=== PATIENT | male | born 1950 | race Caucasian/White ===

== ENCOUNTER 2024-01-15 06:49 | Emergency (ER) | payer BC, MEDICAID ==
[~2024-01-15] VITALS: Ht 172.7 cm; Wt 91.7 kg
[~2024-01-15 06:49] MED LIST: BP MEDICATION; FLO0.4C PO
[2024-01-15] MEDS: heparin 10,000 units/1 ML INJ IV PRN (07:26)
[2024-01-15] MEDS: heparin 25,000 UNIT/250ml bag 250 ML IV PRN (07:40)
[2024-01-15] MEDS: aspirin 81mg tab.chew PO ONE (07:40)
[2024-01-15 07:49] LABS: APTT 64 SECONDS (22-32); D-DIMER 0.63 MG/L FEU (0-0.50); INR 1.1 INR; PROTHROMBIN TIME 11.9 SECONDS (9.0-12.0)
[2024-01-15 08:04] LABS: ALBUMIN 2.9 G/DL (3.4-5.0); ANION GAP 10 (8-16); BLOOD UREA NITROGEN 49 MG/DL (7-18); CALCIUM 8.4 MG/DL (8.5-10.1); CHLORIDE 96 MMOL/L (99-107); CREATININE 8.17 MG/DL (0.60-1.10); GLUCOSE 134 MG/DL (70-104); MAGNESIUM 2.1 MG/DL (1.5-2.4); POTASSIUM 4.6 MMOL/L (3.5-5.1); SODIUM 136 MMOL/L (135-145); TOTAL CARBON DIOXIDE 29.9 MMOL/L (24-32); eCRCL 8 ML/MIN; eGFR 7 ML/MIN
[2024-01-15 08:07] LABS: BASOPHILS % (AUTO) 0.3 % (0-1); EOSINOPHILS # (AUTO) 0.5 X10'3 (0-0.9); EOSINOPHILS % (AUTO) 3.4 % (0-6); HEMATOCRIT 32.4 % (42.0-52.0); HEMOGLOBIN 10.7 g/dl (14.0-17.9); LYMPHOCYTES # (AUTO) 3.8 X10'3 (1.1-4.8); LYMPHOCYTES % (AUTO) 25.8 % (21-51); MEAN CORPUSCULAR HEMOGLOBIN 31.9 PG (27.0-31.0); MEAN CORPUSCULAR HGB CONC 32.9 g/dL (33.0-36.5); MEAN CORPUSCULAR VOLUME 96.8 FL (78-98); MEAN PLATELET VOLUME 7.6 FL (7.4-10.4); MONOCYTES % (AUTO) 6.8 % (2-12); NEUTROPHILS # (AUTO) 9.3 X10'3 (1.8-7.7); NEUTROPHILS % (AUTO) 63.7 % (42-75); PLATELET COUNT 257 X10'3 (140-440); RED BLOOD COUNT 3.35 X10'6 (4.70-6.10); RED CELL DISTRIBUTION WIDTH 14.5 % (11.5-14.5); WHITE BLOOD COUNT 14.5 X10'3 (4.5-11.0)
[2024-01-15 08:36] LABS: PRO BRAIN NATRIURETIC PEPTIDE 18208 PG/ML (0-125)
[2024-01-15] MEDS ORDERED: iohexol 350MG/ML 100ml bottle IV ONE (10:30)
[2024-01-15] MEDS: cloNIDine 0.1 mg tablet PO ONE (18:02)
[2024-01-15] MEDS: enalaprilat dihydrate 2.5mg/2ml vial IV ONE (18:03)
[2024-01-15] MEDS: hydrALAZINE 20mg/ml inj. IV ONE (18:03)
[2024-01-15] MEDS: nicotine 21mg patch - 24 hr TD ONE (18:08)
[2024-01-16] MEDS: MESSAGE TO NURSING IV ONE ×2 (00:07→05:24)
[2024-01-16 06:54] VITALS: BP 184/78; PULSE 74; RESP 18; TEMP 98.7; O2SAT 98
== END 2024-01-16 06:57 | disposition short-term general hospital (02) ==
LOC: ER 06:49
DX: I21.4 Non-ST elevation (NSTEMI) myocardial infarction (principal); R07.89 Other chest pain; R55 Syncope and collapse; R42 Dizziness and giddiness; Z99.2 Dependence on renal dialysis; Z79.899 Other long term (current) drug therapy
CPT/HCPCS: 36415; 70450; 71045; 71275; 80048; 83735; 83880; 84484; 85025; 85379; 85610; 85730; 93005; 93931; 96365; 96366; 96375; 99291; J0360; J1644; J3490; Q9967

== ENCOUNTER 2024-07-16 21:24 | Inpatient (IN) | payer BC, MEDICAID ==
[~2024-07-16] VITALS: Ht 172.7 cm; Wt 83.6 kg
[~2024-07-16 21:24] MED LIST changes: +APIX5TAB3 PO; +ATOR-2 PO; -BP MEDICATION; +FURO80TA3 PO; +GABA-530 PO; +LISI40TA13 PO; +NIFE90TA70 PO; +PANT40TA54 PO; +SEVE800T28 PO
[2024-07-16 22:37] LABS: HEMATOCRIT 31.1 % (42.0-52.0); HEMOGLOBIN 10.2 g/dl (14.0-17.9); MEAN CORPUSCULAR HEMOGLOBIN 29.7 PG (27.0-31.0); MEAN CORPUSCULAR HGB CONC 32.8 g/dL (33.0-36.5); MEAN CORPUSCULAR VOLUME 90.6 FL (78-98); RED BLOOD COUNT 3.44 X10'6 (4.70-6.10); RED CELL DISTRIBUTION WIDTH 16.8 % (11.5-14.5); WHITE BLOOD COUNT 11.8 X10'3 (4.5-11.0)
[2024-07-16 22:38] LABS: BASOPHILS # (AUTO) 0.1 X10'3 (0-0.2); BASOPHILS % (AUTO) 0.7 % (0-1); EOSINOPHILS # (AUTO) 0.1 X10'3 (0-0.9); EOSINOPHILS % (AUTO) 0.6 % (0-6); LYMPHOCYTES # (AUTO) 0.8 X10'3 (1.1-4.8); LYMPHOCYTES % (AUTO) 6.4 % (21-51); MEAN PLATELET VOLUME 6.9 FL (7.4-10.4); MONOCYTES # (AUTO) 0.3 X10'3 (0-0.9); MONOCYTES % (AUTO) 2.4 % (2-12); NEUTROPHILS # (AUTO) 10.6 X10'3 (1.8-7.7); NEUTROPHILS % (AUTO) 89.9 % (42-75); PLATELET COUNT 264 X10'3 (140-440)
[2024-07-16 22:47] LABS: ALBUMIN 3.2 G/DL (3.4-5.0); ANION GAP 5 (8-16); BLOOD UREA NITROGEN 11 MG/DL (7-18); CALCIUM 8.7 MG/DL (8.5-10.1); CHLORIDE 98 MMOL/L (99-107); CREATININE 5.62 MG/DL (0.60-1.10); GLUCOSE 153 MG/DL (70-104); POTASSIUM 4.8 MMOL/L (3.5-5.1); SODIUM 135 MMOL/L (135-145); eCRCL 11 ML/MIN; eGFR 10 ML/MIN
[2024-07-16] MEDS: albuterol 2.5 MG/3 ML nebule CONTNEB PRN (23:40)
[2024-07-16 23:42] VITALS: PULSE 125; RESP 36; O2SAT 96
[2024-07-16] MEDS: nitroGLYCERIN 1gm ointment UD TP ONE (23:45)
[2024-07-16] MEDS: hydrALAZINE 20mg/ml inj. IV ONE (23:45)
[2024-07-16 23:51] LABS: MAGNESIUM 2.1 MG/DL (1.5-2.4)
[2024-07-16] MEDS: diltiazem 5mg/ml 5ml inj. IV ONE (23:56)
[2024-07-17] VITALS (39 sets, daily range): BP systolic 145–176; BP diastolic 64–108; PULSE 73–107; RESP 16–33; TEMP 97.2–97.9; O2SAT 95–100
[2024-07-17 00:22] LABS: PRO BRAIN NATRIURETIC PEPTIDE > 30000 PG/ML (0-125)
[2024-07-17 00:54] LABS: ABG BASE EXCESS 1.6 mmol/L (-2.0-3.0); ABG HCO3 22.1 mmol/L (21.0-28.0); ABG OXYGEN SATURATION 97.3 % (94.0-98.0); ABG PCO2 (T) 23.2 mmHg (35.0-48.0); ABG PH (T) 7.597 (7.350-7.450); ABG PO2 (T) 88.7 mmHg (83.0-108.0); ALLEN'S TEST POSITIVE; FCOHb 0.5 % (0.5-1.5); FHHb 2.7 % (0.0-5.0); FMetHb 0.3 % (0.0-1.5); FO2Hb 96.5 % (94.0-98.0); MODE MASK - BIPAP; PATIENT TEMPERATURE 36.9; RESPIRATORY RATE 12 b/min; TOTAL HEMOGLOBIN 11.2 G/dl (13.5-17.5)
[2024-07-17] MEDS ORDERED: magnesium hydroxide 30ml (MOM) UD suspension PO PRN (01:35)
[2024-07-17] MEDS ORDERED: acetaminophen 325mg tablet PO PRN (01:35)
[2024-07-17] MEDS ORDERED: potassium Cl 20 mEq SR tablet PO PRN ×2 (01:35)
[2024-07-17] MEDS ORDERED: ondansetron/PF 4mg/2ml inj IV PRN (01:35)
[2024-07-17] MEDS ORDERED: mag hydrox/Alum hydrox/simeth 30ml oral suspension PO PRN (01:35)
[2024-07-17] MEDS ORDERED: magnesium Cl slow-release 64mg tablet PO PRN (01:35)
[2024-07-17] MEDS ORDERED: morphine 2 MG/ML inj. syringe IV PRN (01:35)
[2024-07-17] MEDS ORDERED: magnesium sulf-water 2g/50mL 50 ML IV PRN (01:35)
[2024-07-17] MEDS ORDERED: potassium Cl 40MEQ/1/2NS 520ml 520 ML IV PRN (01:35)
[2024-07-17] MEDS ORDERED: magnesium sulf-water 4G/100mL 100 ML IV PRN (01:35)
[2024-07-17 03:01] LABS: APTT 30 SECONDS (22-32); D-DIMER 1.17 MG/L FEU (0-0.50); INR 1.1 INR; PROTHROMBIN TIME 11.1 SECONDS (9.0-12.0)
[2024-07-17 03:04] LABS: MAGNESIUM 2.1 MG/DL (1.5-2.4); POTASSIUM 3.8 MMOL/L (3.5-5.1)
[2024-07-17] MEDS: HEPARIN DRIP DVT/PE -**PHARMACIST TO DOSE IV ONE (04:30)
[2024-07-17] MEDS ORDERED: heparin 10,000 units/1 ML INJ IV PRN (04:50)
[2024-07-17] MEDS: heparin 10,000 units/1 ML INJ IV ONE (05:38)
[2024-07-17] MEDS: MESSAGE TO NURSING IV ONE ×3 (05:41→14:03)
[2024-07-17] MEDS: heparin 25,000 UNIT/250ml bag 250 ML IV PRN (05:41)
[2024-07-17 05:51] LABS: BILIRUBIN,URINE NEGATIVE (Neg); CLARITY,URINE CLEAR (Clear); COLOR,URINE YELLOW (Yellow); GLUCOSE, URINE 100 mg/dl (Neg); KETONES,URINE NEGATIVE (Neg); LEUKOCYTE ESTERASE ,URINE SMALL (Neg); NITRITES, URINE NEGATIVE (Neg); OCCULT BLOOD,URINE TRACE-INTACT (Neg); PH,URINE 8.5 (4.8-8.0); PROTEIN,URINE 100 mg/dl (Neg); UROBILINOGEN,URINE 0.2 E.U/dL (0.2-1.0)
[2024-07-17 05:52] LABS: UA COLLECTION TYPE URINAL
[2024-07-17 05:59] LABS: BACTERIA,URINE NONE SEEN /HPF (Neg); MUCUS STRANDS NONE SEEN /LPF (Neg); RBC,URINE 0-2 /HPF (0-2); SQUAMOUS EPITHELIAL CELL,UR FEW /LPF (FEW)
[2024-07-17] MEDS: ipratropium/albuterol 3ml nebule NEB SCH (07:31)
[2024-07-17] MEDS: K and/or MAG REPLACEMENT MC SCH (08:00)
[2024-07-17 09:02] LABS: BASOPHILS % (AUTO) 0.2 % (0-1); EOSINOPHILS % (AUTO) 0 % (0-6); HEMATOCRIT 34.6 % (42.0-52.0); HEMOGLOBIN 11.3 g/dl (14.0-17.9); LYMPHOCYTES # (AUTO) 0.8 X10'3 (1.1-4.8); LYMPHOCYTES % (AUTO) 9.9 % (21-51); MEAN CORPUSCULAR HEMOGLOBIN 29.7 PG (27.0-31.0); MEAN CORPUSCULAR HGB CONC 32.7 g/dL (33.0-36.5); MEAN CORPUSCULAR VOLUME 90.7 FL (78-98); MEAN PLATELET VOLUME 7.5 FL (7.4-10.4); MONOCYTES # (AUTO) 0.5 X10'3 (0-0.9); MONOCYTES % (AUTO) 6.2 % (2-12); NEUTROPHILS # (AUTO) 6.9 X10'3 (1.8-7.7); NEUTROPHILS % (AUTO) 83.7 % (42-75); PLATELET COUNT 257 X10'3 (140-440); RED BLOOD COUNT 3.81 X10'6 (4.70-6.10); RED CELL DISTRIBUTION WIDTH 17.2 % (11.5-14.5); WHITE BLOOD COUNT 8.2 X10'3 (4.5-11.0)
[2024-07-17] MEDS: levoFLOXACIN-Levaquin 500mg/D5 100 ML IV ONE (10:56)
[2024-07-17] MEDS: methylPREDNISolone sod succ 125mg/2ml vial IV SCH (11:02)
[2024-07-17] MEDS: docusate sod 100mg capsule PO SCH (11:02)
[2024-07-17] MEDS: metoprolol succinate 25mg (24-HOUR) SR. Tablet PO SCH (13:22)
[2024-07-17] MEDS: lisinopril 20mg tablet PO SCH (13:23)
[2024-07-17] MEDS ORDERED: aminophylline 250mg/10ml inj. IV PRN (14:20)
[2024-07-17] MEDS ORDERED: nitroGLYCERIN 0.4mg SUBLingual tab SL PRN (14:20)
[2024-07-17] MEDS ORDERED: regadenoson 0.4mg/5ml syringe IV PRN (14:20)
[2024-07-17] MEDS ORDERED: metoprolol tartrate 1mg/ml inj IV PRN (14:20)
[2024-07-17] MEDS ORDERED: labetalol 20mg/4ml (5mg/ml) syringe IV PRN (15:00)
[2024-07-17] MEDS: labetalol 20mg/4ml (5mg/ml) syringe IV PRN (15:53)
[2024-07-17] MEDS ORDERED: nitroGLYCERIN-Tridil 50MG/D5W 250 ML IV PRN (16:30)
[2024-07-17] MEDS ORDERED: hydrALAZINE 20mg/ml inj. IV PRN (17:35)
[2024-07-17] MEDS ORDERED: albumin (human) 25% 100ml IV 100 ML IV PRN (17:45)
[2024-07-17] MEDS: furosemide 40mg/4ml inj IV ONE (19:47)
[2024-07-17] MEDS: nitroGLYCERIN-Tridil 50MG/D5W 250 ML IV SCH ×2 (20:23)
[2024-07-18] VITALS (41 sets, daily range): BP systolic 134–197; BP diastolic 66–109; PULSE 56–118; RESP 13–26; TEMP 97–98.2; O2SAT 56–99
[2024-07-18] MEDS ORDERED: nitroGLYCERIN-Tridil 50MG/D5W 250 ML IV PRN ×2 (04:05→04:13)
[2024-07-18] MEDS: nitroGLYCERIN-Tridil 50MG/D5W 250 ML IV SCH (04:25)
[2024-07-18 04:54] LABS: BASOPHILS % (AUTO) 0.1 % (0-1); EOSINOPHILS % (AUTO) 0 % (0-6); HEMATOCRIT 27.5 % (42.0-52.0); HEMOGLOBIN 9.1 g/dl (14.0-17.9); LYMPHOCYTES # (AUTO) 0.7 X10'3 (1.1-4.8); LYMPHOCYTES % (AUTO) 6.2 % (21-51); MEAN CORPUSCULAR HEMOGLOBIN 29.5 PG (27.0-31.0); MEAN CORPUSCULAR HGB CONC 32.9 g/dL (33.0-36.5); MEAN CORPUSCULAR VOLUME 89.7 FL (78-98); MEAN PLATELET VOLUME 7.4 FL (7.4-10.4); MONOCYTES # (AUTO) 0.6 X10'3 (0-0.9); MONOCYTES % (AUTO) 5.8 % (2-12); NEUTROPHILS # (AUTO) 9.7 X10'3 (1.8-7.7); NEUTROPHILS % (AUTO) 87.9 % (42-75); PLATELET COUNT 222 X10'3 (140-440); RED BLOOD COUNT 3.07 X10'6 (4.70-6.10); RED CELL DISTRIBUTION WIDTH 17.1 % (11.5-14.5)
[2024-07-18 05:10] LABS: ALANINE AMINOTRANSFERASE 13 U/L (12-78); ALBUMIN/GLOBULIN RATIO 0.9 (1.1-1.5); ALKALINE PHOSPHATASE 45 IU/L (46-116); ANION GAP 7 (8-16); ASPARTATE AMINO TRANSFERASE 15 U/L (10-37); BILIRUBIN,TOTAL 0.7 MG/DL (0.1-1.0); BLOOD UREA NITROGEN 11 MG/DL (7-18); BUN/CREATININE RATIO 2.4 (10.0-20.0); CALCIUM 9.6 MG/DL (8.5-10.1); CHLORIDE 100 MMOL/L (99-107); CREATININE 4.53 MG/DL (0.60-1.10); GLUCOSE 133 MG/DL (70-104); POTASSIUM 4.3 MMOL/L (3.5-5.1); SODIUM 136 MMOL/L (135-145); TOTAL PROTEIN 6.3 G/DL (6.4-8.2); eCRCL 14 ML/MIN; eGFR 13 ML/MIN
[2024-07-18] MEDS ORDERED: albumin (human) 25% 100ml IV 100 ML IV PRN (06:40)
[2024-07-18] MEDS ORDERED: fentaNYL/PF 50MCG/1 ML 2ML syringe ONE (07:36)
[2024-07-18] MEDS ORDERED: heparin 1,000unit/ml 10ml vial 10 ML ONE (07:36)
[2024-07-18] MEDS ORDERED: iohexol 350 MG/ML 50ML vial IV ONE (07:36)
[2024-07-18] MEDS ORDERED: midazolam 1 mg/ML 2ml injection ONE (07:36)
[2024-07-18] MEDS ORDERED: verapamil 2.5 mg/ml inj IV ONE (07:36)
[2024-07-18] MEDS ORDERED: iohexol 350MG/ML 100ml bottle IV ONE ×3 (07:37→09:27)
[2024-07-18] MEDS ORDERED: nitroGLYCERIN 500mcg/5mL D5W 5 ML IV ONE ×2 (07:37→09:28)
[2024-07-18] MEDS ORDERED: LIDOcaine 1% 30ml preserv. free vial ONE (07:48)
[2024-07-18] MEDS ORDERED: heparin 25,000 UNIT/250ml bag 250 ML IV ONE (09:15)
[2024-07-18] MEDS ORDERED: hydrALAZINE 20mg/ml inj. ONE (09:54)
[2024-07-18] MEDS ORDERED: clopidogrel 300mg tablet ONE (09:58)
[2024-07-18] MEDS ORDERED: aspirin 81mg tab.chew ONE (09:58)
[2024-07-18] MEDS: furosemide 20 MG/2 ML vial IV SCH (12:00)
[2024-07-18 14:12] LABS: ISTAT HGB ART 9.9 g/dl (14.0-17.9); ISTAT Hct ART 29 %PCV (42-52); ISTAT O2 SATURATION ARTERIAL 92 % (95-98); ISTAT SOURCE ART
[2024-07-18] MEDS: sacubitril/valsartan 24mg-26mg tablet PO SCH (20:00)
[2024-07-18] MEDS: aspirin 81mg, enteric-coated 1 TAB TABLET.DR PO ONE (21:40)
[2024-07-18] MEDS: metoprolol succinate 25mg (24-HOUR) SR. Tablet PO ONE (21:40)
[2024-07-18] MEDS: apixaban 5mg tablet PO SCH (21:41)
[2024-07-19] VITALS (13 sets, daily range): BP systolic 118–168; BP diastolic 59–91; PULSE 59–96; RESP 14–31; TEMP 97.3–98.4; O2SAT 56–97
[2024-07-19] MEDS: hydrALAZINE 20mg/ml inj. IV PRN (03:17)
[2024-07-19 06:33] LABS: BASOPHILS % (AUTO) 0.1 % (0-1); EOSINOPHILS % (AUTO) 0 % (0-6); HEMATOCRIT 29.7 % (42.0-52.0); HEMOGLOBIN 9.4 g/dl (14.0-17.9); LYMPHOCYTES # (AUTO) 0.6 X10'3 (1.1-4.8); LYMPHOCYTES % (AUTO) 5.1 % (21-51); MEAN CORPUSCULAR HEMOGLOBIN 28.8 PG (27.0-31.0); MEAN CORPUSCULAR HGB CONC 31.8 g/dL (33.0-36.5); MEAN CORPUSCULAR VOLUME 90.5 FL (78-98); MEAN PLATELET VOLUME 7.8 FL (7.4-10.4); MONOCYTES # (AUTO) 0.6 X10'3 (0-0.9); MONOCYTES % (AUTO) 4.3 % (2-12); NEUTROPHILS # (AUTO) 11.6 X10'3 (1.8-7.7); NEUTROPHILS % (AUTO) 90.5 % (42-75); PLATELET COUNT 229 X10'3 (140-440); RED BLOOD COUNT 3.28 X10'6 (4.70-6.10); RED CELL DISTRIBUTION WIDTH 17.2 % (11.5-14.5); WHITE BLOOD COUNT 12.9 X10'3 (4.5-11.0)
[2024-07-19 06:54] LABS: ALANINE AMINOTRANSFERASE 19 U/L (12-78); ALBUMIN 3.3 G/DL (3.4-5.0); ALKALINE PHOSPHATASE 47 IU/L (46-116); ANION GAP 9 (8-16); ASPARTATE AMINO TRANSFERASE 19 U/L (10-37); BILIRUBIN,TOTAL 0.6 MG/DL (0.1-1.0); BLOOD UREA NITROGEN 18 MG/DL (7-18); BUN/CREATININE RATIO 3.7 (10.0-20.0); CALCIUM 9.7 MG/DL (8.5-10.1); CHLORIDE 98 MMOL/L (99-107); CREATININE 4.83 MG/DL (0.60-1.10); GLUCOSE 120 MG/DL (70-104); MAGNESIUM 2.2 MG/DL (1.5-2.4); POTASSIUM 4.8 MMOL/L (3.5-5.1); SODIUM 135 MMOL/L (135-145); TOTAL CARBON DIOXIDE 28.3 MMOL/L (24-32); TOTAL PROTEIN 6.5 G/DL (6.4-8.2); eCRCL 13 ML/MIN; eGFR 12 ML/MIN
[2024-07-19 07:16] LABS: HBSAG SCREEN Negative (Negative)
[2024-07-19] MEDS: EMPAGLIFLOZIN 10 MG TABLET PO SCH (07:34)
[2024-07-19] MEDS: metoprolol succinate 25mg (24-HOUR) SR. Tablet PO SCH (07:34)
[2024-07-19] MEDS: clopidogrel 75mg tablet PO SCH (07:45)
[2024-07-19] MEDS: aspirin 81mg, enteric-coated 1 TAB TABLET.DR PO SCH (07:50)
[2024-07-19] MEDS: levoFLOXACIN-Levaquin 250mg/D5 100 ML IV SCH (07:53)
[2024-07-19] MEDS ORDERED: aspirin 81mg, enteric-coated 1 TAB TABLET.DR PO SCH (08:00)
[2024-07-19] MEDS ORDERED: clopidogrel 75mg tablet PO SCH (08:00)
[2024-07-19] MEDS ORDERED: albumin (human) 25% 100ml IV 100 ML IV PRN (10:05)
[2024-07-19] MEDS: amLODIPine 5mg tablet PO SCH (11:29)
[2024-07-19] MEDS: pantoprazole 40mg Tablet.DR PO ONE (11:30)
[2024-07-19] MEDS: furosemide 20 MG/2 ML vial IV SCH (20:00)
[2024-07-19] MEDS: EPOETIN ALFA-EPBX 20,000 UNIT/ML 1 ML MDV IV ONE (23:23)
[2024-07-20 02:00] VITALS: BP 136/69; PULSE 72; RESP 18; TEMP 97.8; O2SAT 97
[2024-07-20 05:57] LABS: BASOPHILS % (AUTO) 0.1 % (0-1); EOSINOPHILS % (AUTO) 0.1 % (0-6); HEMATOCRIT 29.2 % (42.0-52.0); HEMOGLOBIN 9.6 g/dl (14.0-17.9); LYMPHOCYTES # (AUTO) 1.9 X10'3 (1.1-4.8); LYMPHOCYTES % (AUTO) 15.3 % (21-51); MEAN CORPUSCULAR HEMOGLOBIN 29.5 PG (27.0-31.0); MEAN CORPUSCULAR HGB CONC 32.8 g/dL (33.0-36.5); MEAN PLATELET VOLUME 8.3 FL (7.4-10.4); MONOCYTES # (AUTO) 1.4 X10'3 (0-0.9); MONOCYTES % (AUTO) 10.8 % (2-12); NEUTROPHILS # (AUTO) 9.3 X10'3 (1.8-7.7); NEUTROPHILS % (AUTO) 73.7 % (42-75); PLATELET COUNT 244 X10'3 (140-440); RED BLOOD COUNT 3.24 X10'6 (4.70-6.10); RED CELL DISTRIBUTION WIDTH 17.4 % (11.5-14.5); WHITE BLOOD COUNT 12.6 X10'3 (4.5-11.0)
[2024-07-20 06:00] VITALS: BP 158/79; PULSE 66; RESP 19; TEMP 97.5; O2SAT 95
[2024-07-20 06:26] LABS: ALANINE AMINOTRANSFERASE 22 U/L (12-78); ALKALINE PHOSPHATASE 47 IU/L (46-116); ANION GAP 10 (8-16); ASPARTATE AMINO TRANSFERASE 24 U/L (10-37); BILIRUBIN,TOTAL 0.6 MG/DL (0.1-1.0); BLOOD UREA NITROGEN 23 MG/DL (7-18); BUN/CREATININE RATIO 4.3 (10.0-20.0); CALCIUM 7.9 MG/DL (8.5-10.1); CHLORIDE 100 MMOL/L (99-107); CREATININE 5.34 MG/DL (0.60-1.10); GLUCOSE 100 MG/DL (70-104); MAGNESIUM 2.1 MG/DL (1.5-2.4); POTASSIUM 3.5 MMOL/L (3.5-5.1); SODIUM 138 MMOL/L (135-145); TOTAL CARBON DIOXIDE 27.6 MMOL/L (24-32); eCRCL 12 ML/MIN; eGFR 11 ML/MIN
[2024-07-20 07:45] VITALS: RESP 18; O2SAT 95
[2024-07-20] MEDS: pantoprazole 40mg Tablet.DR PO SCH (07:49)
[2024-07-20] MEDS: metoprolol succinate 25mg (24-HOUR) SR. Tablet PO SCH (07:50)
[2024-07-20 08:08] VITALS: PULSE 61; RESP 18; O2SAT 97
[2024-07-20] MEDS ORDERED: METO-395 PO (10:22)
[2024-07-20] MEDS ORDERED: CLOP75TA34 PO (10:22)
[2024-07-20] MEDS ORDERED: NOR5T PO (10:22)
[2024-07-20] MEDS ORDERED: EMPA10TA PO (10:22)
[2024-07-20] MEDS ORDERED: ASPI-1071 PO (10:22)
[2024-07-20] MEDS ORDERED: SACU1TAB PO (10:22)
[2024-07-20 11:00] VITALS: BP 118/76; PULSE 60; RESP 19; TEMP 97.4; O2SAT 96
[2024-07-22 13:25] LABS: ISTAT HGB MIX 9.5 g/dl (14.0-17.9); ISTAT Hct MIX 28 %PCV (42-52); ISTAT O2 SATURATION MIX VENOUS 68 % (60-80); ISTAT SOURCE VEN
[2024-07-22] MEDS ORDERED: METO100T7 PO (18:26)
== END 2024-07-20 12:05 | disposition home or self-care (01) | DRG 321 ==
LOC: ER 21:24 → ED HOLD 07-17 01:41 → EDBEDREQ 07-17 01:46 → PCU 3S 07-17 06:05
PROVIDERS: ADMIT Surgery Surgical Critical Care; ATTEND Internal Medicine
PROC: 02HV33Z Insertion of Infusion Device into Superior Vena Cava, Percutaneous Approach (ICD-10-PCS; 2024-07-17)
PROC: B548ZZA Ultrasonography of Superior Vena Cava, Guidance (ICD-10-PCS; 2024-07-17)
PROC: 5A09357 Assistance with Respiratory Ventilation, Less than 24 Consecutive Hours, Continuous Positive Airway Pressure (ICD-10-PCS; 2024-07-17)
PROC: 5A1D70Z Performance of Urinary Filtration, Intermittent, Less than 6 Hours Per Day (ICD-10-PCS; 2024-07-17)
PROC: 02703ZZ Dilation of Coronary Artery, One Artery, Percutaneous Approach (ICD-10-PCS; principal; 2024-07-18)
PROC: 027034Z Dilation of Coronary Artery, One Artery with Drug-eluting Intraluminal Device, Percutaneous Approach (ICD-10-PCS; 2024-07-18)
PROC: 4A023N8 Measurement of Cardiac Sampling and Pressure, Bilateral, Percutaneous Approach (ICD-10-PCS; 2024-07-18)
PROC: B2111ZZ Fluoroscopy of Multiple Coronary Arteries using Low Osmolar Contrast (ICD-10-PCS; 2024-07-18)
PROC: B2151ZZ Fluoroscopy of Left Heart using Low Osmolar Contrast (ICD-10-PCS; 2024-07-18)
PROC: 5A09357 Assistance with Respiratory Ventilation, Less than 24 Consecutive Hours, Continuous Positive Airway Pressure (ICD-10-PCS; 2024-07-18)
PROC: 5A1D70Z Performance of Urinary Filtration, Intermittent, Less than 6 Hours Per Day (ICD-10-PCS; 2024-07-18)
PROC: 5A1D70Z Performance of Urinary Filtration, Intermittent, Less than 6 Hours Per Day (ICD-10-PCS; 2024-07-19)
DX: I21.4 Non-ST elevation (NSTEMI) myocardial infarction (principal); I50.23 Acute on chronic systolic (congestive) heart failure; J18.9 Pneumonia, unspecified organism; J96.01 Acute respiratory failure with hypoxia; N18.6 End stage renal disease; J44.1 Chronic obstructive pulmonary disease with (acute) exacerbation; I13.2 Hypertensive heart and chronic kidney disease with heart failure and with stage 5 chronic kidney disease, or end stage renal disease; I16.1 Hypertensive emergency; J44.0 Chronic obstructive pulmonary disease with (acute) lower respiratory infection; Z20.822 Contact with and (suspected) exposure to COVID-19; I48.91 Unspecified atrial fibrillation; G30.9 Alzheimer's disease, unspecified; F02.80 Dementia in other diseases classified elsewhere, unspecified severity, without behavioral disturbance, psychotic disturbance, mood disturbance, and anxiety
CPT/HCPCS: 36556; 92921; 93306; 93460; 96365; 96375; 99291; C9600; 36415; 36600; 71045; 71046; 76937; 77001; 80048; 80053; 81001; 82803; 82948; 83605; 83735; 83880; 84132; 84145; 84484; 85014; 85018; 85025; 85347; 85379; 85610; 85730; 87040; 87088; 87340; 87502; 87503; 87811; 92508; 92616; 93005; 94640; 94660; 94760; 97161; 97530; 99152; 99153; 99285; A4615; A4620; A6212; A6258; A6402; A6446; A6449; A9270; C1725; C1751; C1769; C1874; C1894; E1594; G0257; G0378; J0360; J1644; J1940; J1956; J2250; J2919; J3010; J3490; J7030; J7040; Q9967

== ENCOUNTER 2024-09-25 14:32 | Outpatient (CLI) | payer BC, OTHER, MEDICAID ==
[~2024-09-25] VITALS: Ht 172.7 cm; Wt 78.9 kg
[~2024-09-25 14:32] MED LIST changes: +ALBU90AE3 INH; -APIX5TAB3 PO; +ASPI-1071 PO; +CLOP-32 PO; +EMPA10TA PO; +FOLI0.4T6 PO; +FURO-149 PO; -GABA-530 PO; +GABA300C PO; -LISI40TA13 PO; +METO-411 PO; +NIFE-128 PO; -NIFE90TA70 PO; -PANT40TA54 PO; +VITA1CAP16 PO
[2024-09-25] MEDS: albuterol 2.5 MG/3 ML nebule NEB ONE (15:25)
[2024-09-25 15:28] VITALS: PULSE 73; RESP 16; O2SAT 98
[2024-09-25 15:40] VITALS: PULSE 69; RESP 16
== END 2024-09-25 23:59 | disposition home or self-care (01) ==
LOC: RT 14:32
PROVIDERS: ATTEND Internal Medicine Pulmonary Disease
DX: J44.9 Chronic obstructive pulmonary disease, unspecified (principal)
CPT/HCPCS: 94060; 94727; 94729; 94760